=== PATIENT | female | born 1955 | race Caucasian/White ===

== ENCOUNTER 2020-08-22 17:27 | Inpatient (IN) ==
[2020-08-22] MEDS ORDERED: FUROSEMIDE 40 MG/4 ML VIAL IV STA (18:34)
[2020-08-22] MEDS ORDERED: ASPIRIN 325 MG TABLET PO STA (18:34)
[2020-08-22] MEDS ORDERED: ONDANSETRON 4 MG/2 ML VIAL IV STA (18:34)
[2020-08-22] MEDS ORDERED: NITROGLYCERIN 2% OINT 1 INCH/GM PACK TOP STA (18:34)
[2020-08-22 18:45] LABS: Basophils # 0.1 10*3/uL (0.0-0.2); Basophils % 0.6 % (0.0-0.8); Eosinophils # 0.4 10*3/uL (0.0-0.87); Hematocrit 39.5 VOL% (35.7-47.0); Hemoglobin 13.2 GM/DL (12.0-16.0); Immature Granulocytes % 0.3 %; Immature Granulocytes Absolute 0.03 #; Lymphocytes # 3.2 10*3/uL (1.4-4.0); Lymphocytes % 37.4 % (21.3-54.2); Mean Corpuscular HGB Conc 33.4 GM/DL (32-36); Mean Corpuscular Volume 82.5 FL (87-102); Mean Platelet Volume 9.6 FL (9.6-12.0); Monocytes % 6.9 % (1.7-12.7); Neutrophils % 50.8 % (38.7-73.9); Platelet Count 227 T/CUMM (130-400); Red Blood Count 4.79 MC/CUMM (3.8-5.5); Red Cell Distribution Width 13.5 % (9.3-17.3); White Blood Count 8.7 T/CUMM (4-12)
[2020-08-22 18:53] LABS: PT Patient Result 10.3 SECS (9.8-11.9)
[2020-08-22 18:57] LABS: Albumin 3.4 G/DL (3.4-5.0); Bilirubin,Total 0.5 MG/DL (0.2-1.0); Calcium 9.2 MG/DL (8.5-10.1); Osmolality,Calculated 285.5 MOS/KG (273-304); Total Protein 7.4 G/DL (6.4-8.3)
[2020-08-22] MEDS ORDERED: ACETAMINOPHEN 325 MG TABLET PO PRN (22:18)
[2020-08-22] MEDS ORDERED: DEXTROSE 50% 25 GM/50 ML VIAL IV PRN (22:18)
[2020-08-22] MEDS ORDERED: ENOXAPARIN 120 MG/0.8 ML SYRINGE SUBCUT SCH (22:18)
[2020-08-22] MEDS ORDERED: INSULIN LISPRO 100 UNIT/ML SUBCUT SCH (22:18)
[2020-08-22] MEDS ORDERED: FUROSEMIDE 20 MG TABLET PO PRN (22:18)
[2020-08-22] MEDS ORDERED: LANSOPRAZOLE 30 MG PO SCH (22:18)
[2020-08-22] MEDS ORDERED: SODIUM CHLORIDE 0.9% 1,000 ML IV SCH (22:18)
[2020-08-22] MEDS ORDERED: MORPHINE 4 MG/1 ML VIAL IV PRN (22:18)
[2020-08-22] MEDS ORDERED: GLUCAGON 1 MG VIAL IM PRN (22:18)
[2020-08-22] MEDS ORDERED: ONDANSETRON 4 MG/2 ML VIAL IV PRN (22:18)
[2020-08-22] MEDS: DOCUSATE SODIUM 100 MG CAPSULE PO SCH (23:12)
[2020-08-22] MEDS: PANTOPRAZOLE 40 MG TABLET PO SCH (23:12)
[2020-08-22] MEDS: NITROGLYCERIN 2% OINT 1 INCH/GM PACK TOP SCH (23:13)
[2020-08-23 00:47] LABS: Bilirubin,Total 0.4 MG/DL (0.2-1.0); Calcium 8.9 MG/DL (8.5-10.1); Osmolality,Calculated 283.7 MOS/KG (273-304); Risk Ratio 2.59; Total Protein 7.1 G/DL (6.4-8.3); VLDL CHOLESTEROL 15.2 MG/DL
[2020-08-23 00:54] LABS: Basophils % 0.4 % (0.0-0.8); Eosinophils # 0.3 10*3/uL (0.0-0.87); Eosinophils % 3.2 % (0.00-10.9); Hematocrit 37.3 VOL% (35.7-47.0); Hemoglobin 12.4 GM/DL (12.0-16.0); Immature Granulocytes % 0.1 %; Immature Granulocytes Absolute 0.01 #; Lymphocytes # 3.1 10*3/uL (1.4-4.0); Lymphocytes % 40.4 % (21.3-54.2); Mean Corpuscular HGB Conc 33.2 GM/DL (32-36); Mean Corpuscular Volume 83.3 FL (87-102); Mean Platelet Volume 9.6 FL (9.6-12.0); Monocytes % 7.3 % (1.7-12.7); Neutrophils % 48.6 % (38.7-73.9); Platelet Count 196 T/CUMM (130-400); Red Blood Count 4.48 MC/CUMM (3.8-5.5); Red Cell Distribution Width 13.5 % (9.3-17.3); White Blood Count 7.8 T/CUMM (4-12)
[2020-08-23] MEDS: INSULIN GLARGINE 100 UNIT/ML SUBCUT SCH ×3 (01:18→20:33)
[2020-08-23] MEDS: INSULIN REGULAR 100 UNIT/ML SUBCUT SCH ×5 (01:19→20:33)
[2020-08-23] MEDS: NITROGLYCERIN 2% OINT 1 INCH/GM PACK TOP SCH ×3 (06:46→18:59)
[2020-08-23] MEDS: LEVOTHYROXINE 50 MCG TABLET PO SCH (06:46)
[2020-08-23] MEDS ORDERED: metFORMIN 500 MG TABLET PO SCH (07:30)
[2020-08-23] MEDS: INSULIN LISPRO 100 UNIT/ML SUBCUT SCH (08:08)
[2020-08-23] MEDS: DOCUSATE SODIUM 100 MG CAPSULE PO SCH ×2 (08:09→20:32)
[2020-08-23] MEDS: ASPIRIN EC 325 MG TABLET PO SCH (08:09)
[2020-08-23] MEDS: METOPROLOL TARTRATE 25 MG TABLET PO SCH ×2 (08:09→20:36)
[2020-08-23] MEDS ORDERED: MAGNESIUM SULF RIDER 2 GM in PREMIX 1 EACH IV PRN (08:43)
[2020-08-23] MEDS ORDERED: DIAZEPAM 5 MG TABLET PO ONE (08:43)
[2020-08-23] MEDS ORDERED: POTASSIUM CHLORIDE RIDER 10 MEQ in PREMIX 1 EACH IV PRN (08:43)
[2020-08-23] MEDS ORDERED: diphenhydrAMINE CAP 25 MG CAPSULE PO ONE (08:43)
[2020-08-23] MEDS ORDERED: LIRAGLUTIDE SUBCUT SCH (09:00)
[2020-08-23] MEDS: lisinopriL 2.5 MG TABLET PO SCH (09:28)
[2020-08-23] MEDS ORDERED: LIDOCAINE 1% 20 ML VIAL ONE (14:10)
[2020-08-23] MEDS ORDERED: HEPARIN/NACL 0.9% 2 UNITS/ML 1,500 ML IV ONE (14:10)
[2020-08-23] MEDS ORDERED: MIDAZOLAM 2 MG/2 ML VIAL ONE ×2 (14:40→14:51)
[2020-08-23] MEDS ORDERED: fentaNYL 100 MCG/2 ML VIAL ONE (14:41)
[2020-08-23] MEDS ORDERED: DEXTROSE 50% 25 GM/50 ML VIAL IV PRN ×2 (15:24→15:58)
[2020-08-23] MEDS ORDERED: GLUCAGON 1 MG VIAL IM PRN ×2 (15:24→15:58)
[2020-08-23] MEDS ORDERED: SODIUM CHLORIDE 0.9% 1,000 ML IV SCH (15:30)
[2020-08-23] MEDS ORDERED: CEFUROXIME INJ 1,500 MG in SYRINGE 1 EACH IV ONE (15:58)
[2020-08-23 16:43] LABS: Basophils % 0.4 % (0.0-0.8); Eosinophils # 0.2 10*3/uL (0.0-0.87); Eosinophils % 2.9 % (0.00-10.9); Hematocrit 38.6 VOL% (35.7-47.0); Hemoglobin 12.6 GM/DL (12.0-16.0); Immature Granulocytes % 0.2 %; Immature Granulocytes Absolute 0.02 #; Lymphocytes # 3.4 10*3/uL (1.4-4.0); Lymphocytes % 41.3 % (21.3-54.2); Mean Corpuscular HGB Conc 32.6 GM/DL (32-36); Mean Corpuscular Volume 83.7 FL (87-102); Mean Platelet Volume 9.4 FL (9.6-12.0); Monocytes % 7.1 % (1.7-12.7); Neutrophils % 48.1 % (38.7-73.9); Platelet Count 212 T/CUMM (130-400); Red Blood Count 4.61 MC/CUMM (3.8-5.5); Red Cell Distribution Width 13.5 % (9.3-17.3); White Blood Count 8.2 T/CUMM (4-12)
[2020-08-23] MEDS ORDERED: INSULIN LISPRO 100 UNIT/ML SUBCUT SCH (17:00)
[2020-08-23 17:01] LABS: Albumin 3.1 G/DL (3.4-5.0); Bilirubin,Total 1.4 MG/DL (0.2-1.0); Calcium 9.1 MG/DL (8.5-10.1); Osmolality,Calculated 279.5 MOS/KG (273-304); Total Protein 7.2 G/DL (6.4-8.3)
[2020-08-23 18:08] LABS: ABG Base Excess 2.1 MMOL/L (-2.5-2.5); ABG HCO3 26.3 MMOL/L (20-26); ABG Oxygen Saturation 96.2 % (95-100); ABG PCO2 37.8 MM HG (35-48); ABG PH 7.447 (7.35-7.45); ABG PO2 77.1 MM HG (80-95); ABG TCO2 22.9 MMOL/L (23-27)
[2020-08-23] MEDS ORDERED: TEMAZEPAM 7.5 MG CAPSULE PO PRN (20:00)
[2020-08-23] MEDS: PANTOPRAZOLE 40 MG TABLET PO SCH (20:33)
[2020-08-23] MEDS: CHLORHEXIDINE 0.12% ORAL RINSE 60 ML BOTTLE SWISH/SPIT SCH (20:33)
[2020-08-23] MEDS: CHLORHEXIDINE 4% SOLN 118 ML BOTTLE TOP SCH (20:33)
[2020-08-23] MEDS ORDERED: ROSUVASTATIN 20 MG TABLET PO SCH (21:00)
[2020-08-23] MEDS: SODIUM CHLORIDE 0.9% 1,000 ML IV SCH (23:53)
[2020-08-24] MEDS: INSULIN REGULAR 100 UNIT/ML SUBCUT SCH ×3 (00:26→16:16)
[2020-08-24] MEDS: NITROGLYCERIN 2% OINT 1 INCH/GM PACK TOP SCH ×3 (00:26→16:16)
[2020-08-24] MEDS ORDERED: VANCOMYCIN 1,000 MG VIAL ONE (04:34)
[2020-08-24] MEDS ORDERED: VANCOMYCIN 500 MG VIAL ONE ×2 (04:34→13:04)
[2020-08-24] MEDS ORDERED: PAPAVERINE 60 MG/2 ML VIAL ONE (04:34)
[2020-08-24 05:45] LABS: Basophils % 0.3 % (0.0-0.8); Eosinophils # 0.3 10*3/uL (0.0-0.87); Eosinophils % 3.3 % (0.00-10.9); Hematocrit 39.8 VOL% (35.7-47.0); Hemoglobin 13.1 GM/DL (12.0-16.0); Immature Granulocytes % 0.1 %; Immature Granulocytes Absolute 0.01 #; Lymphocytes % 45.9 % (21.3-54.2); Mean Corpuscular HGB Conc 32.9 GM/DL (32-36); Mean Corpuscular Volume 84.1 FL (87-102); Mean Platelet Volume 9.7 FL (9.6-12.0); Monocytes % 6.5 % (1.7-12.7); Neutrophils % 43.9 % (38.7-73.9); Platelet Count 238 T/CUMM (130-400); Red Blood Count 4.73 MC/CUMM (3.8-5.5); Red Cell Distribution Width 13.4 % (9.3-17.3); White Blood Count 8.8 T/CUMM (4-12)
[2020-08-24] MEDS: LEVOTHYROXINE 50 MCG TABLET PO SCH (06:23)
[2020-08-24] MEDS ORDERED: CEFUROXIME INJ 1,500 MG in SYRINGE 1 EACH IV ONE (06:30)
[2020-08-24 07:20] LABS: Calcium 9.3 MG/DL (8.5-10.1)
[2020-08-24 07:21] LABS: Osmolality,Calculated 281.4 MOS/KG (273-304)
[2020-08-24] MEDS ORDERED: ALBUMIN 5% 12.5 GM/250 ML VIAL IV ONE (08:11)
[2020-08-24] MEDS ORDERED: NITROPRUSSIDE 50 MG/2 ML VIAL ONE (08:11)
[2020-08-24] MEDS ORDERED: PHENYLEPHRINE DRIP 40 MG/250 ML PREMIX IV ONE (08:11)
[2020-08-24] MEDS ORDERED: EPINEPHrine 1 MG/10 ML SYRINGE ONE (08:11)
[2020-08-24] MEDS ORDERED: CALCIUM CHLORIDE 1,000 MG/10 ML SYRINGE IV ONE (08:11)
[2020-08-24] MEDS ORDERED: POTASSIUM CHLORIDE RIDER 100 ML IV ONE (08:11)
[2020-08-24] MEDS ORDERED: SODIUM BICARBONATE 50 MEQ/50 ML VIAL IV ONE ×2 (08:11→15:34)
[2020-08-24] MEDS: INSULIN LISPRO 100 UNIT/ML SUBCUT SCH (09:13)
[2020-08-24] MEDS: METOPROLOL TARTRATE 25 MG TABLET PO SCH (09:15)
[2020-08-24] MEDS: lisinopriL 2.5 MG TABLET PO SCH (09:15)
[2020-08-24] MEDS ORDERED: DIAZEPAM 5 MG TABLET PO ONE (09:38)
[2020-08-24] MEDS ORDERED: FAMOTIDINE 20 MG TABLET PO ONE (09:39)
[2020-08-24] MEDS ORDERED: SUFentanil 250 MCG/5 ML AMP ONE (09:40)
[2020-08-24] MEDS ORDERED: MIDAZOLAM 10 MG/2 ML VIAL ONE (09:40)
[2020-08-24] MEDS ORDERED: HEPARIN/NACL 0.9% 2 UNITS/ML 500 ML IV ONE (09:40)
[2020-08-24] MEDS ORDERED: AMINOCAPROIC ACID 5,000 MG/20 ML VIAL ONE (09:41)
[2020-08-24] MEDS ORDERED: MIDAZOLAM 2 MG/2 ML VIAL ONE (10:31)
[2020-08-24] MEDS: DOCUSATE SODIUM 100 MG CAPSULE PO SCH (11:40)
[2020-08-24] MEDS: ASPIRIN EC 325 MG TABLET PO SCH (11:40)
[2020-08-24] MEDS: CHLORHEXIDINE 4% SOLN 118 ML BOTTLE TOP SCH ×2 (11:40→16:15)
[2020-08-24] MEDS: INSULIN GLARGINE 100 UNIT/ML SUBCUT SCH (11:41)
[2020-08-24] MEDS: CHLORHEXIDINE 0.12% ORAL RINSE 60 ML BOTTLE SWISH/SPIT SCH ×2 (11:41→20:29)
[2020-08-24] MEDS ORDERED: CEFUROXIME 1,500 MG VIAL ONE (12:39)
[2020-08-24 12:48] LABS: Hematocrit Heart Surgery 33.1 PERCENT (37-47); Hemoglobin Heart Surgery 10.7 G/DL (12.0-16.0); PCO2 Patient Temp Venous 41.4 MM HG; PH Patient Temp Venous 7.37; PO2 Patient Temp Venous 38.2 MM HG; Potassium Heart/CVR 3.2 MMOL/L (3.5-5.1); VBG Base Excess -1.2 MEQ/L (0-4); VBG HCO3 22.8 MEQ/L (24-28); VBG Oxygen Saturation 67.7 %; VBG PCO2 41.4 MMHG (41-51); VBG PH 7.37; VBG PO2 38.2 MMHG (17-40)
[2020-08-24 12:55] LABS: Bilirubin,Urine Negative (Negative); Blood, Urine Negative (Negative); Glucose,Urine (UA) Negative (Negative); Ketones,Urine Negative (Negative); Mucus,Urine Occasional /LPF (Occasional); Nitrite,Urine Negative (Negative); Protein,Urine Negative; RBC,Urine 2 /HPF (0-4); Squamous Epithelial Cell,Urine Occasional /HPF (0-10); Urine Appearance CLEAR (Clear); Urine Color Yellow (Yellow); Urine Specific Gravity 1.029 (1.001-1.035); WBC,Urine <1 /HPF (0-6)
[2020-08-24 14:24] LABS: Hematocrit Heart Surgery 22.8 PERCENT (37-47); Hemoglobin Heart Surgery 7.3 G/DL (12.0-16.0); PCO2 Patient Temp Venous 38.8 MM HG; PH Patient Temp Venous 7.41; PO2 Patient Temp Venous 53.1 MM HG; Potassium Heart/CVR 3.9 MMOL/L (3.5-5.1); VBG Base Excess 0.1 MEQ/L (0-4); VBG HCO3 24.4 MEQ/L (24-28); VBG Oxygen Saturation 86.3 %; VBG PCO2 38.8 MMHG (41-51); VBG PH 7.41; VBG PO2 53.1 MMHG (17-40)
[2020-08-24 14:27] LABS: Alcohol Patient Result Negative (Negative); Barbiturates Screen,Urine Negative (Negative); Benzodiazepines Screen,Urine Positive (Negative); Cannabinoid Screen,Urine Negative (Negative); Opiate Screen,Urine Negative (Negative); Phencyclidine Screen,Urine Negative (Negative)
[2020-08-24 14:58] LABS: Hematocrit Heart Surgery 25.1 PERCENT (37-47); Hemoglobin Heart Surgery 8.1 G/DL (12.0-16.0); PH Patient Temp Venous 7.471; PO2 Patient Temp Venous 39.4 MM HG; Potassium Heart/CVR 4.3 MMOL/L (3.5-5.1); VBG Base Excess 1.4 MEQ/L (0-4); VBG HCO3 25.4 MEQ/L (24-28); VBG Oxygen Saturation 76.7 %; VBG PH 7.471; VBG PO2 39.4 MMHG (17-40)
[2020-08-24 15:29] LABS: ABG HCO3 23.6 MMOL/L (20-26); ABG Oxygen Saturation 99.4 % (95-100); ABG PCO2 36.4 MM HG (35-48); ABG PH 7.413 (7.35-7.45); ABG TCO2 21.3 MMOL/L (23-27); Glucose Heart Surgery 253 MG/DL (74-106); Hematocrit Heart Surgery 29.3 PERCENT (37-47); Hemoglobin Heart Surgery 9.4 G/DL (12.0-16.0); Ionized Calcium Arterial 1.24 MMOL/L (1.21-1.46); PCO2 Patient Temp Arterial 36.4 MMHG; PH Patient Temp Arterial 7.413; Patient Temperature 37 CELCIUS; Potassium Heart/CVR 3.5 MMOL/L (3.5-5.1); Sodium Heart/CVR 136 MMOL/L (135-145)
[2020-08-24] MEDS ORDERED: MANNITOL 100 GM/500 ML BAG IV ONE (15:33)
[2020-08-24] MEDS ORDERED: LIDOCAINE 2% 5 ML VIAL ONE ×2 (15:34→16:16)
[2020-08-24] MEDS ORDERED: PROTAMINE SULFATE 250 MG/25 ML VIAL IV ONE (15:34)
[2020-08-24] MEDS ORDERED: FUROSEMIDE 20 MG/2 ML VIAL ONE (15:34)
[2020-08-24] MEDS ORDERED: MAGNESIUM SULFATE 5 GM/10 ML VIAL IV ONE (15:34)
[2020-08-24] MEDS ORDERED: HEPARIN 10,000 UNIT/10 ML VIAL ONE (15:34)
[2020-08-24] MEDS ORDERED: DEXTROSE 5% KCL 20 MEQ 20 MEQ/1,000 ML BAG IV ONE (15:34)
[2020-08-24] MEDS ORDERED: ALBUMIN 25% 25 GM/100 ML VIAL IV ONE (15:34)
[2020-08-24] MEDS ORDERED: methylPREDNISolone SOD SUC 1,000 MG/8 ML VIAL ONE (15:34)
[2020-08-24 15:50] LABS: HIV Antigen/Antibody Result Nonreactive (Nonreactive)
[2020-08-24 15:51] LABS: HIV Antigen/Antibody Result Nonreactive (Nonreactive); Hepatitis B Surface Ag Quant < 0.10 Index; Hepatitis B Surface Ag Result Negative (Negative); Hepatitis C Virus Ab Quant 0.09 Index; Hepatitis C Virus Ab Result Negative (Negative)
[2020-08-24] MEDS ORDERED: INSULIN REGULAR 100 UNIT/ML IV PRN (16:12)
[2020-08-24] MEDS ORDERED: ACETAMINOPHEN 650 MG SUPP RECTAL PRN (16:12)
[2020-08-24] MEDS ORDERED: MIDAZOLAM 2 MG/2 ML VIAL IV PRN (16:12)
[2020-08-24] MEDS ORDERED: MORPHINE 4 MG/1 ML VIAL IV PRN (16:12)
[2020-08-24] MEDS ORDERED: DEXTROSE 50% 25 GM/50 ML VIAL IV PRN ×2 (16:12)
[2020-08-24] MEDS ORDERED: ONDANSETRON 4 MG/2 ML VIAL IV PRN (16:12)
[2020-08-24] MEDS ORDERED: CALCIUM CHLORIDE 1,000 MG/10 ML SYRINGE IV PRN (16:12)
[2020-08-24] MEDS ORDERED: LACTATED RINGERS 250 ML IV PRN (16:12)
[2020-08-24] MEDS ORDERED: NITROPRUSSIDE 100 MG in DEXTROSE 5% 250 ML IV PRN (16:12)
[2020-08-24] MEDS ORDERED: SODIUM CHLORIDE 0.45% 1,000 ML IV SCH ×2 (16:12)
[2020-08-24] MEDS ORDERED: CHLORHEXIDINE 4% SOLN 118 ML BOTTLE TOP PRN (16:12)
[2020-08-24] MEDS ORDERED: PHENYLEPHRINE DRIP 40 MG/250 ML PREMIX IV PRN (16:12)
[2020-08-24] MEDS ORDERED: MORPHINE 10 MG/1 ML VIAL IV PRN (16:12)
[2020-08-24] MEDS ORDERED: MAGNESIUM SULF RIDER 2 GM in PREMIX 1 EACH IV PRN (16:12)
[2020-08-24] MEDS ORDERED: MIDAZOLAM 10 MG/2 ML VIAL IV PRN (16:12)
[2020-08-24] MEDS ORDERED: VECURONIUM 10 MG VIAL IV PRN ×2 (16:12)
[2020-08-24] MEDS ORDERED: INSULIN REGULAR 100 UNIT/ML IV ONE (16:12)
[2020-08-24] MEDS ORDERED: MAGNESIUM SULF RIDER 4 GM in PREMIX 1 EACH IV PRN (16:12)
[2020-08-24] MEDS ORDERED: PHENYLEPHRINE 1 MG/10 ML SYRINGE IV ONE (16:16)
[2020-08-24] MEDS ORDERED: CALCIUM CHLORIDE 1,000 MG/10 ML VIAL IV ONE (16:16)
[2020-08-24] MEDS ORDERED: ETOMIDATE 40 MG/20 ML VIAL IV ONE (16:16)
[2020-08-24] MEDS ORDERED: SEVOFLURANE 1 UNIT/15 MINUTE INH ONE (16:16)
[2020-08-24] MEDS: SODIUM CHLORIDE 0.9% 1,000 ML IV SCH (16:16)
[2020-08-24] MEDS ORDERED: LACTATED RINGERS 1,000 ML IV ONE ×3 (16:16→20:29)
[2020-08-24] MEDS ORDERED: SODIUM CHLORIDE 0.9% 1,000 ML IV ONE (16:16)
[2020-08-24] MEDS ORDERED: AMIODARONE 150 MG/3 ML VIAL ONE (16:16)
[2020-08-24 16:19] LABS: ABG Base Excess -0.3 MMOL/L (-2.5-2.5); ABG HCO3 24.2 MMOL/L (20-26); ABG Oxygen Saturation 99.4 % (95-100); ABG PCO2 41.9 MM HG (35-48); ABG TCO2 22.7 MMOL/L (23-27); Glucose Heart Surgery 248 MG/DL (74-106); Hematocrit Heart Surgery 29.9 PERCENT (37-47); Hemoglobin Heart Surgery 9.7 G/DL (12.0-16.0); Potassium Heart/CVR 3.6 MMOL/L (3.5-5.1)
[2020-08-24 16:21] LABS: Basophils % 0.3 % (0.0-0.8); Eosinophils # 0.2 10*3/uL (0.0-0.87); Eosinophils % 1.6 % (0.00-10.9); Hematocrit 29.3 VOL% (35.7-47.0); Hemoglobin 9.7 GM/DL (12.0-16.0); Immature Granulocytes % 0.5 %; Immature Granulocytes Absolute 0.05 #; Lymphocytes # 2.2 10*3/uL (1.4-4.0); Mean Corpuscular HGB Conc 33.1 GM/DL (32-36); Mean Corpuscular Volume 84.9 FL (87-102); Mean Platelet Volume 9.2 FL (9.6-12.0); Monocytes % 4.3 % (1.7-12.7); Neutrophils % 72.3 % (38.7-73.9); Platelet Count 167 T/CUMM (130-400); Red Blood Count 3.45 MC/CUMM (3.8-5.5); Red Cell Distribution Width 13.6 % (9.3-17.3); White Blood Count 10.3 T/CUMM (4-12)
[2020-08-24] MEDS: INSULIN REGULAR DRIP 100 ML IV SCH (16:30)
[2020-08-24] MEDS ORDERED: PROTAMINE SULFATE 50 MG/5 ML VIAL IV ONE (16:42)
[2020-08-24] MEDS: POTASSIUM CHLORIDE RIDER 20 MEQ in PREMIX 1 EACH IV PRN ×3 (16:44→20:27)
[2020-08-24 16:46] LABS: INR 1.1; PT Patient Result 11.9 SECS (9.8-11.9); Partial Thromboplastin Time 32.8 SECS (23.9-33.8)
[2020-08-24 16:49] LABS: Albumin 2.7 G/DL (3.4-5.0); Bilirubin,Total 1.2 MG/DL (0.2-1.0); Calcium 8.5 MG/DL (8.5-10.1); Osmolality,Calculated 284.5 MOS/KG (273-304); Total Protein 5.9 G/DL (6.4-8.3)
[2020-08-24 16:50] LABS: CKMB % 4.5 %
[2020-08-24 16:52] LABS: Troponin I 1.12 NG/ML (0.00-0.045)
[2020-08-24 17:02] LABS: ABG Base Excess -1.6 MMOL/L (-2.5-2.5); ABG HCO3 23.1 MMOL/L (20-26); ABG Oxygen Saturation 98.2 % (95-100); ABG PCO2 44.5 MM HG (35-48); ABG PH 7.343 (7.35-7.45); ABG TCO2 22.2 MMOL/L (23-27); Glucose Heart Surgery 235 MG/DL (74-106); Hematocrit Heart Surgery 30.5 PERCENT (37-47); Hemoglobin Heart Surgery 9.9 G/DL (12.0-16.0); Potassium Heart/CVR 3.3 MMOL/L (3.5-5.1)
[2020-08-24] MEDS: POTASSIUM CHLORIDE RIDER 10 MEQ in PREMIX 1 EACH IV PRN ×3 (17:40→21:00)
[2020-08-24 18:39] LABS: ABG Base Excess -1.4 MMOL/L (-2.5-2.5); ABG HCO3 23.2 MMOL/L (20-26); ABG Oxygen Saturation 98.1 % (95-100); ABG PCO2 44.6 MM HG (35-48); ABG PH 7.345 (7.35-7.45); ABG TCO2 22.3 MMOL/L (23-27); Glucose Heart Surgery 194 MG/DL (74-106); Hematocrit Heart Surgery 30.8 PERCENT (37-47); Potassium Heart/CVR 3.5 MMOL/L (3.5-5.1)
[2020-08-24] MEDS: ALBUMIN 5% 12.5 GM in PREMIX 1 EACH IV PRN ×2 (19:36→20:39)
[2020-08-24 20:11] LABS: ABG Base Excess -2.6 MMOL/L (-2.5-2.5); ABG HCO3 23.6 MMOL/L (20-26); ABG Oxygen Saturation 97.2 % (95-100); ABG PCO2 47.2 MM HG (35-48); ABG PH 7.317 (7.35-7.45); ABG PO2 109.9 MM HG (80-95); ABG TCO2 25.1 MMOL/L (23-27); Glucose Heart Surgery 138 MG/DL (74-106); Hemoglobin Heart Surgery 9.8 G/DL (12.0-16.0); Potassium Heart/CVR 3.7 MMOL/L (3.5-5.1)
[2020-08-24 21:20] LABS: ABG Base Excess -1.9 MMOL/L (-2.5-2.5); ABG HCO3 22.8 MMOL/L (20-26); ABG Oxygen Saturation 95.5 % (95-100); ABG PCO2 39.2 MM HG (35-48); ABG PH 7.378 (7.35-7.45); ABG PO2 83.3 MM HG (80-95); ABG TCO2 21.4 MMOL/L (23-27); Glucose Heart Surgery 129 MG/DL (74-106); Hematocrit Heart Surgery 26.9 PERCENT (37-47); Hemoglobin Heart Surgery 8.7 G/DL (12.0-16.0); Potassium Heart/CVR 4.2 MMOL/L (3.5-5.1)
[2020-08-24] MEDS ORDERED: SODIUM CHLORIDE 0.9% 1,000 ML IV PRN (21:26)
[2020-08-24] MEDS ORDERED: CEFUROXIME INJ 1,500 MG in SODIUM CHLORIDE 0.9% 100 ML IV SCH (23:30)
[2020-08-25 00:29] LABS: ABG Base Excess -3.1 MMOL/L (-2.5-2.5); ABG HCO3 22.3 MMOL/L (20-26); ABG PCO2 41.6 MM HG (35-48); ABG PH 7.348 (7.35-7.45); ABG TCO2 23.6 MMOL/L (23-27); Glucose Heart Surgery 110 MG/DL (74-106); Hemoglobin Heart Surgery 12.4 G/DL (12.0-16.0); Potassium Heart/CVR 3.7 MMOL/L (3.5-5.1)
[2020-08-25] MEDS: POTASSIUM CHLORIDE RIDER 20 MEQ in PREMIX 1 EACH IV PRN (00:37)
[2020-08-25] MEDS: POTASSIUM CHLORIDE RIDER 10 MEQ in PREMIX 1 EACH IV PRN (01:11)
[2020-08-25 01:25] LABS: CKMB % 4.9 %
[2020-08-25 01:29] LABS: Troponin I 1.31 NG/ML (0.00-0.045)
[2020-08-25 02:15] LABS: ABG Base Excess -2.5 MMOL/L (-2.5-2.5); ABG Oxygen Saturation 96.1 % (95-100); ABG PCO2 37.4 MM HG (35-48); ABG PH 7.388 (7.35-7.45); ABG PO2 83.5 MM HG (80-95); ABG TCO2 23.2 MMOL/L (23-27); Glucose Heart Surgery 103 MG/DL (74-106); Hemoglobin Heart Surgery 12.5 G/DL (12.0-16.0); Potassium Heart/CVR 4.2 MMOL/L (3.5-5.1)
[2020-08-25 03:33] LABS: ABG Base Excess -3.2 MMOL/L (-2.5-2.5); ABG HCO3 22.4 MMOL/L (20-26); ABG Oxygen Saturation 94.1 % (95-100); ABG PCO2 42.1 MM HG (35-48); ABG PH 7.343 (7.35-7.45); ABG PO2 73.9 MM HG (80-95); ABG TCO2 23.6 MMOL/L (23-27); Glucose Heart Surgery 105 MG/DL (74-106); Hemoglobin Heart Surgery 12.9 G/DL (12.0-16.0); Potassium Heart/CVR 4.1 MMOL/L (3.5-5.1)
[2020-08-25] MEDS: INSULIN REGULAR DRIP 100 ML IV SCH (03:35)
[2020-08-25 03:49] LABS: Basophils % 0.2 % (0.0-0.8); Hematocrit 36.6 VOL% (35.7-47.0); Hemoglobin 12.5 GM/DL (12.0-16.0); Immature Granulocytes % 0.4 %; Immature Granulocytes Absolute 0.04 #; Lymphocytes # 0.8 10*3/uL (1.4-4.0); Lymphocytes % 7.3 % (21.3-54.2); Mean Corpuscular HGB Conc 34.2 GM/DL (32-36); Mean Corpuscular Volume 84.1 FL (87-102); Mean Platelet Volume 9.4 FL (9.6-12.0); Monocytes % 3.1 % (1.7-12.7); Platelet Count 148 T/CUMM (130-400); Red Blood Count 4.35 MC/CUMM (3.8-5.5); Red Cell Distribution Width 13.4 % (9.3-17.3); White Blood Count 11.3 T/CUMM (4-12)
[2020-08-25 04:10] LABS: Albumin 3.3 G/DL (3.4-5.0); Bilirubin,Direct 0.42 MG/DL (0.0-0.20); Bilirubin,Total 1.5 MG/DL (0.2-1.0); Calcium 8.4 MG/DL (8.5-10.1); Osmolality,Calculated 279.3 MOS/KG (273-304); Total Protein 6.6 G/DL (6.4-8.3)
[2020-08-25] MEDS ORDERED: KETOROLAC 30 MG/1 ML VIAL IV ONE (07:00)
[2020-08-25] MEDS ORDERED: FUROSEMIDE 40 MG/4 ML VIAL IV ONE (07:28)
[2020-08-25] MEDS ORDERED: INSULIN REGULAR 100 UNIT/ML SUBCUT SCH (08:00)
[2020-08-25] MEDS: CHLORHEXIDINE 0.12% ORAL RINSE 60 ML BOTTLE SWISH/SPIT SCH ×3 (08:03→20:56)
[2020-08-25 08:18] LABS: CKMB % 5.9 %
[2020-08-25 08:27] LABS: Troponin I 1.76 NG/ML (0.00-0.045)
[2020-08-25] MEDS ORDERED: SODIUM CHLOR 0.45% KCL 20 MEQ 20 MEQ/1,000 ML BAG IV SCH (09:39)
[2020-08-25] MEDS ORDERED: ONDANSETRON 4 MG/2 ML VIAL IV PRN (09:39)
[2020-08-25] MEDS ORDERED: DEXTROSE 50% 25 GM/50 ML VIAL IV PRN ×2 (09:39)
[2020-08-25] MEDS ORDERED: POTASSIUM CHLORIDE 20 MEQ TABLET PO PRN (09:39)
[2020-08-25] MEDS ORDERED: ALUMINUM/MAGNES/SIMETH MAX STR 30 ML UDCUP PO PRN (09:39)
[2020-08-25] MEDS ORDERED: GLUCAGON 1 MG VIAL IM PRN ×2 (09:39)
[2020-08-25] MEDS ORDERED: MAGNESIUM SULF RIDER 2 GM in PREMIX 1 EACH IV PRN (09:39)
[2020-08-25] MEDS ORDERED: MAGNESIUM HYDROXIDE SUSP 30 ML UDCUP PO PRN (09:39)
[2020-08-25] MEDS ORDERED: ACETAMINOPHEN 325 MG TABLET PO PRN (09:39)
[2020-08-25] MEDS ORDERED: MAGNESIUM SULF RIDER 4 GM in PREMIX 1 EACH IV PRN (09:39)
[2020-08-25] MEDS: PANTOPRAZOLE 40 MG TABLET PO SCH (10:11)
[2020-08-25] MEDS: METOPROLOL TARTRATE 25 MG TABLET PO SCH ×2 (10:11→20:56)
[2020-08-25] MEDS: DOCUSATE SODIUM 100 MG CAPSULE PO SCH (10:11)
[2020-08-25] MEDS: FERROUS SULFATE 325 MG TABLET PO SCH (10:12)
[2020-08-25] MEDS: ASPIRIN EC 325 MG TABLET PO SCH (10:14)
[2020-08-25] MEDS: lisinopriL 2.5 MG TABLET PO SCH (10:14)
[2020-08-25] MEDS: KETOROLAC 30 MG/1 ML VIAL IV SCH ×3 (11:35→23:31)
[2020-08-25] MEDS: INSULIN REGULAR 100 UNIT/ML SUBCUT SCH ×3 (12:30→20:55)
[2020-08-25] MEDS: ROSUVASTATIN 20 MG TABLET PO SCH (20:56)
[2020-08-26] MEDS: KETOROLAC 30 MG/1 ML VIAL IV SCH ×3 (05:15→17:25)
[2020-08-26 05:43] LABS: Basophils # 0.1 10*3/uL (0.0-0.2); Basophils % 0.4 % (0.0-0.8); Eosinophils % 0.2 % (0.00-10.9); Hematocrit 33.8 VOL% (35.7-47.0); Immature Granulocytes % 0.5 %; Immature Granulocytes Absolute 0.08 #; Lymphocytes # 3.2 10*3/uL (1.4-4.0); Mean Corpuscular HGB Conc 32.5 GM/DL (32-36); Mean Corpuscular Volume 87.1 FL (87-102); Mean Platelet Volume 10.2 FL (9.6-12.0); Monocytes % 6.8 % (1.7-12.7); Neutrophils % 72.1 % (38.7-73.9); Platelet Count 186 T/CUMM (130-400); Red Blood Count 3.88 MC/CUMM (3.8-5.5); Red Cell Distribution Width 14.2 % (9.3-17.3); White Blood Count 16.2 T/CUMM (4-12)
[2020-08-26] MEDS ORDERED: FUROSEMIDE 40 MG/4 ML VIAL IV ONE (06:00)
[2020-08-26 06:16] LABS: Albumin 3.1 G/DL (3.4-5.0); Bilirubin,Direct 0.23 MG/DL (0.0-0.20); Bilirubin,Indirect 0.5 MG/DL (0.0-1.0); Bilirubin,Total 0.7 MG/DL (0.2-1.0); Calcium 8.4 MG/DL (8.5-10.1); Osmolality,Calculated 286.8 MOS/KG (273-304); Total Protein 6.6 G/DL (6.4-8.3)
[2020-08-26 06:18] LABS: Troponin I 1.44 NG/ML (0.00-0.045)
[2020-08-26] MEDS: LIDOCAINE 5% PATCH TRANSDERM SCH (09:20)
[2020-08-26] MEDS: ASPIRIN EC 325 MG TABLET PO SCH (09:24)
[2020-08-26] MEDS: FERROUS SULFATE 325 MG TABLET PO SCH (09:24)
[2020-08-26] MEDS: lisinopriL 2.5 MG TABLET PO SCH (09:24)
[2020-08-26] MEDS: DOCUSATE SODIUM 100 MG CAPSULE PO SCH (09:24)
[2020-08-26] MEDS: METOPROLOL TARTRATE 25 MG TABLET PO SCH ×3 (09:24→21:20)
[2020-08-26] MEDS: INSULIN REGULAR 100 UNIT/ML SUBCUT SCH ×4 (09:24→21:18)
[2020-08-26] MEDS: PANTOPRAZOLE 40 MG TABLET PO SCH (09:24)
[2020-08-26] MEDS: ASCORBIC ACID 500 MG TABLET PO SCH ×2 (09:24→21:19)
[2020-08-26] MEDS: CHLORHEXIDINE 0.12% ORAL RINSE 60 ML BOTTLE SWISH/SPIT SCH ×2 (09:25→21:18)
[2020-08-26] MEDS: FUROSEMIDE 40 MG/4 ML VIAL IV SCH (09:30)
[2020-08-26] MEDS: oxyCODONE/ACETAMINOPHEN 5-325 MG TABLET PO PRN ×2 (12:29→16:47)
[2020-08-26] MEDS: metFORMIN 500 MG TABLET PO SCH (17:25)
[2020-08-26] MEDS: ROSUVASTATIN 20 MG TABLET PO SCH (21:19)
[2020-08-27] MEDS: KETOROLAC 30 MG/1 ML VIAL IV SCH ×5 (00:12→23:37)
[2020-08-27 05:45] LABS: Basophils % 0.4 % (0.0-0.8); Eosinophils # 0.3 10*3/uL (0.0-0.87); Eosinophils % 2.8 % (0.00-10.9); Hematocrit 31.6 VOL% (35.7-47.0); Hemoglobin 10.3 GM/DL (12.0-16.0); Immature Granulocytes % 0.6 %; Immature Granulocytes Absolute 0.07 #; Lymphocytes # 3.6 10*3/uL (1.4-4.0); Lymphocytes % 31.9 % (21.3-54.2); Mean Corpuscular HGB Conc 32.6 GM/DL (32-36); Mean Platelet Volume 9.8 FL (9.6-12.0); Monocytes % 6.9 % (1.7-12.7); Neutrophils % 57.4 % (38.7-73.9); Platelet Count 171 T/CUMM (130-400); Red Blood Count 3.59 MC/CUMM (3.8-5.5); Red Cell Distribution Width 14.3 % (9.3-17.3); White Blood Count 11.2 T/CUMM (4-12)
[2020-08-27 06:24] LABS: Alanine Aminotransferase 42 U/L (13-56); Albumin 2.9 G/DL (3.4-5.0); Alkaline Phosphatase 115 U/L (45-117); Aspartate Amino Transferase 30 U/L (0-37); Bilirubin,Indirect 0.6 MG/DL (0.0-1.0); Blood Urea Nitrogen 31 MG/DL (7-18); Calcium 8.4 MG/DL (8.5-10.1); Estimated Glom Filtration Rate 88 ML/MIN; Glucose 222 MG/DL (74-106); Osmolality,Calculated 288.7 MOS/KG (273-304); Total Protein 6.4 G/DL (6.4-8.3)
[2020-08-27 06:26] LABS: Troponin I 0.843 NG/ML (0.00-0.045)
[2020-08-27] MEDS ORDERED: VECURONIUM 10 MG VIAL IV ONE (06:29)
[2020-08-27] MEDS ORDERED: BISACODYL 5 MG TABLET PO PRN (09:11)
[2020-08-27] MEDS ORDERED: POLYETHYLENE GLYCOL POWDER 17 GM PACK PO PRN (09:11)
[2020-08-27] MEDS: INSULIN REGULAR 100 UNIT/ML SUBCUT SCH ×4 (10:06→21:08)
[2020-08-27] MEDS: metFORMIN 500 MG TABLET PO SCH ×2 (10:09→16:30)
[2020-08-27] MEDS: DOCUSATE SODIUM 100 MG CAPSULE PO SCH (10:09)
[2020-08-27] MEDS: ASPIRIN EC 325 MG TABLET PO SCH (10:09)
[2020-08-27] MEDS: PANTOPRAZOLE 40 MG TABLET PO SCH (10:10)
[2020-08-27] MEDS: METOPROLOL TARTRATE 25 MG TABLET PO SCH ×2 (10:10→21:09)
[2020-08-27] MEDS: FERROUS SULFATE 325 MG TABLET PO SCH (10:10)
[2020-08-27] MEDS: lisinopriL 2.5 MG TABLET PO SCH (10:10)
[2020-08-27] MEDS: ASCORBIC ACID 500 MG TABLET PO SCH ×2 (10:11→21:09)
[2020-08-27] MEDS ORDERED: POTASSIUM CHLORIDE 20 MEQ TABLET PO ONE (10:11)
[2020-08-27] MEDS: LIDOCAINE 5% PATCH TRANSDERM SCH (10:14)
[2020-08-27] MEDS: FUROSEMIDE 40 MG/4 ML VIAL IV SCH (10:15)
[2020-08-27] MEDS: CHLORHEXIDINE 0.12% ORAL RINSE 60 ML BOTTLE SWISH/SPIT SCH ×2 (12:19→21:09)
[2020-08-27] MEDS: oxyCODONE/ACETAMINOPHEN 5-325 MG TABLET PO PRN ×2 (13:43→21:08)
[2020-08-27] MEDS: ROSUVASTATIN 20 MG TABLET PO SCH (21:09)
[2020-08-28] MEDS ORDERED: KETOROLAC 30 MG/1 ML VIAL IV SCH (06:00)
[2020-08-28] MEDS: KETOROLAC 30 MG/1 ML VIAL IV SCH (06:04)
[2020-08-28 06:20] LABS: Calcium 8.6 MG/DL (8.5-10.1); Osmolality,Calculated 284.7 MOS/KG (273-304)
[2020-08-28] MEDS ORDERED: INSULIN GLARGINE 100 UNIT/ML SUBCUT SCH (09:00)
[2020-08-28] MEDS: ASPIRIN EC 325 MG TABLET PO SCH (09:04)
[2020-08-28] MEDS: INSULIN REGULAR 100 UNIT/ML SUBCUT SCH ×4 (09:04→22:14)
[2020-08-28] MEDS: FUROSEMIDE 40 MG/4 ML VIAL IV SCH (09:04)
[2020-08-28] MEDS: oxyCODONE/ACETAMINOPHEN 5-325 MG TABLET PO PRN ×3 (09:05→22:11)
[2020-08-28] MEDS: lisinopriL 2.5 MG TABLET PO SCH (09:05)
[2020-08-28] MEDS: DOCUSATE SODIUM 100 MG CAPSULE PO SCH (09:05)
[2020-08-28] MEDS: ASCORBIC ACID 500 MG TABLET PO SCH ×2 (09:05→22:10)
[2020-08-28] MEDS: CHLORHEXIDINE 0.12% ORAL RINSE 60 ML BOTTLE SWISH/SPIT SCH ×2 (09:06→22:20)
[2020-08-28] MEDS: metFORMIN 500 MG TABLET PO SCH ×2 (09:06→17:09)
[2020-08-28] MEDS: METOPROLOL TARTRATE 25 MG TABLET PO SCH ×2 (09:06→22:11)
[2020-08-28] MEDS: FERROUS SULFATE 325 MG TABLET PO SCH (09:06)
[2020-08-28] MEDS: LIDOCAINE 5% PATCH TRANSDERM SCH (09:06)
[2020-08-28] MEDS: PANTOPRAZOLE 40 MG TABLET PO SCH (09:06)
[2020-08-28] MEDS ORDERED: LACTULOSE 20 GM/30 ML UDCUP PO PRN (15:56)
[2020-08-28] MEDS: ROSUVASTATIN 20 MG TABLET PO SCH (22:10)
[2020-08-29 06:59] LABS: Basophils % 0.4 % (0.0-0.8); Eosinophils # 0.4 10*3/uL (0.0-0.87); Eosinophils % 5.4 % (0.00-10.9); Hematocrit 40.4 VOL% (35.7-47.0); Immature Granulocytes % 0.4 %; Immature Granulocytes Absolute 0.03 #; Lymphocytes # 1.7 10*3/uL (1.4-4.0); Lymphocytes % 22.6 % (21.3-54.2); Mean Corpuscular HGB Conc 32.9 GM/DL (32-36); Mean Corpuscular Volume 87.1 FL (87-102); Mean Platelet Volume 9.6 FL (9.6-12.0); Monocytes % 9.5 % (1.7-12.7); Neutrophils % 61.7 % (38.7-73.9); Platelet Count 191 T/CUMM (130-400)
[2020-08-29 07:05] LABS: White Blood Count 7.4 T/CUMM (4-12)
[2020-08-29 07:06] LABS: Hemoglobin 13.3 GM/DL (12.0-16.0); Red Blood Count 4.64 MC/CUMM (3.8-5.5)
[2020-08-29 07:22] LABS: Alanine Aminotransferase 40 U/L (13-56); Albumin 2.7 G/DL (3.4-5.0); Alkaline Phosphatase 162 U/L (45-117); Aspartate Amino Transferase 22 U/L (0-37); Bilirubin,Indirect 0.4 MG/DL (0.0-1.0); Blood Urea Nitrogen 21 MG/DL (7-18); Calcium 8.9 MG/DL (8.5-10.1); Estimated Glom Filtration Rate 120 ML/MIN; Glucose 226 MG/DL (74-106); Osmolality,Calculated 279.1 MOS/KG (273-304); Total Protein 6.7 G/DL (6.4-8.3)
[2020-08-29 07:24] LABS: Troponin I 0.305 NG/ML (0.00-0.045)
[2020-08-29] MEDS: INSULIN REGULAR 100 UNIT/ML SUBCUT SCH ×4 (08:16→20:54)
[2020-08-29] MEDS: METOPROLOL TARTRATE 25 MG TABLET PO SCH ×2 (09:16→20:49)
[2020-08-29] MEDS: DOCUSATE SODIUM 100 MG CAPSULE PO SCH (09:16)
[2020-08-29] MEDS: lisinopriL 2.5 MG TABLET PO SCH (09:17)
[2020-08-29] MEDS: PANTOPRAZOLE 40 MG TABLET PO SCH (09:17)
[2020-08-29] MEDS: metFORMIN 500 MG TABLET PO SCH ×2 (09:17→16:29)
[2020-08-29] MEDS: ASCORBIC ACID 500 MG TABLET PO SCH ×2 (09:17→20:54)
[2020-08-29] MEDS: POLYETHYLENE GLYCOL POWDER 17 GM PACK PO SCH (09:19)
[2020-08-29] MEDS: ASPIRIN EC 325 MG TABLET PO SCH (09:20)
[2020-08-29] MEDS: INSULIN GLARGINE 100 UNIT/ML SUBCUT SCH (09:20)
[2020-08-29] MEDS: FUROSEMIDE 40 MG/4 ML VIAL IV SCH ×2 (09:22→11:04)
[2020-08-29] MEDS: LIDOCAINE 5% PATCH TRANSDERM SCH (09:23)
[2020-08-29] MEDS: oxyCODONE/ACETAMINOPHEN 5-325 MG TABLET PO PRN ×3 (09:28→18:13)
[2020-08-29] MEDS: CHLORHEXIDINE 0.12% ORAL RINSE 60 ML BOTTLE SWISH/SPIT SCH ×2 (09:29→20:54)
[2020-08-29] MEDS: SPIRONOLACTONE 25 MG TABLET PO SCH (10:01)
[2020-08-29] MEDS ORDERED: methylPREDNISolone SOD SUC 125 MG/2 ML VIAL IV ONE (10:31)
[2020-08-29] MEDS: GABAPENTIN 100 MG CAPSULE PO SCH ×3 (11:03→20:49)
[2020-08-29] MEDS: KETOROLAC 30 MG/1 ML VIAL IV PRN ×2 (12:28→18:13)
[2020-08-29] MEDS ORDERED: TEMAZEPAM 15 MG CAPSULE PO PRN (20:21)
[2020-08-29] MEDS: ROSUVASTATIN 20 MG TABLET PO SCH (20:49)
[2020-08-29] MEDS ORDERED: INSULIN REGULAR 100 UNIT/ML SUBCUT ONE (23:19)
[2020-08-30] MEDS ORDERED: INSULIN REGULAR 100 UNIT/ML SUBCUT ONE (02:39)
[2020-08-30 05:00] LABS: Basophils % 0.2 % (0.0-0.8); Hematocrit 31.4 VOL% (35.7-47.0); Immature Granulocytes % 0.4 %; Immature Granulocytes Absolute 0.05 #; Lymphocytes # 1.2 10*3/uL (1.4-4.0); Lymphocytes % 11.1 % (21.3-54.2); Mean Corpuscular HGB Conc 33.4 GM/DL (32-36); Mean Corpuscular Volume 85.1 FL (87-102); Mean Platelet Volume 9.5 FL (9.6-12.0); Monocytes % 7.6 % (1.7-12.7); Neutrophils % 80.7 % (38.7-73.9); Platelet Count 202 T/CUMM (130-400); Red Cell Distribution Width 13.2 % (9.3-17.3)
[2020-08-30 05:19] LABS: Hemoglobin 10.5 GM/DL (12.0-16.0); Red Blood Count 3.69 MC/CUMM (3.8-5.5); White Blood Count 11.2 T/CUMM (4-12)
[2020-08-30 05:27] LABS: Alanine Aminotransferase 34 U/L (13-56); Albumin 2.4 G/DL (3.4-5.0); Alkaline Phosphatase 152 U/L (45-117); Aspartate Amino Transferase 12 U/L (0-37); Bilirubin,Indirect 0.7 MG/DL (0.0-1.0); Blood Urea Nitrogen 26 MG/DL (7-18); Calcium 9.3 MG/DL (8.5-10.1); Estimated Glom Filtration Rate 78 ML/MIN; Glucose 300 MG/DL (74-106); Total Protein 6.6 G/DL (6.4-8.3)
[2020-08-30 05:34] LABS: Troponin I 0.113 NG/ML (0.00-0.045)
[2020-08-30] MEDS: oxyCODONE/ACETAMINOPHEN 5-325 MG TABLET PO PRN ×2 (05:59→12:10)
[2020-08-30] MEDS ORDERED: LORATADINE 10 MG TABLET PO PRN (08:22)
[2020-08-30] MEDS ORDERED: DEXTROMETHORPHAN ER 6 MG/ML 90 ML/BOTTLE PO PRN (08:23)
[2020-08-30] MEDS ORDERED: PSEUDOEPHEDRINE 30 MG TABLET PO PRN (08:23)
[2020-08-30] MEDS: metFORMIN 500 MG TABLET PO SCH ×2 (08:41→16:43)
[2020-08-30] MEDS: ASPIRIN EC 81 MG TABLET PO SCH (08:41)
[2020-08-30] MEDS: PANTOPRAZOLE 40 MG TABLET PO SCH (08:41)
[2020-08-30] MEDS: lisinopriL 2.5 MG TABLET PO SCH (08:42)
[2020-08-30] MEDS: ASCORBIC ACID 500 MG TABLET PO SCH ×2 (08:43→21:03)
[2020-08-30] MEDS: SPIRONOLACTONE 25 MG TABLET PO SCH (08:43)
[2020-08-30] MEDS: DOCUSATE SODIUM 100 MG CAPSULE PO SCH (08:43)
[2020-08-30] MEDS: GABAPENTIN 100 MG CAPSULE PO SCH ×3 (08:43→21:03)
[2020-08-30] MEDS: METOPROLOL TARTRATE 25 MG TABLET PO SCH ×2 (08:43→21:03)
[2020-08-30] MEDS: FUROSEMIDE 40 MG/4 ML VIAL IV SCH (08:44)
[2020-08-30] MEDS: INSULIN REGULAR 100 UNIT/ML SUBCUT SCH ×5 (08:44→21:02)
[2020-08-30] MEDS: INSULIN GLARGINE 100 UNIT/ML SUBCUT SCH (08:45)
[2020-08-30] MEDS: LIDOCAINE 5% PATCH TRANSDERM SCH (08:46)
[2020-08-30] MEDS: POLYETHYLENE GLYCOL POWDER 17 GM PACK PO SCH (08:46)
[2020-08-30] MEDS: KETOROLAC 30 MG/1 ML VIAL IV SCH ×3 (08:54→21:02)
[2020-08-30] MEDS: CHLORHEXIDINE 0.12% ORAL RINSE 60 ML BOTTLE SWISH/SPIT SCH ×2 (08:56→21:03)
[2020-08-30] MEDS: ZALEPLON 5 MG CAPSULE PO PRN (21:02)
[2020-08-30] MEDS: ROSUVASTATIN 20 MG TABLET PO SCH (21:03)
[2020-08-31] MEDS: KETOROLAC 30 MG/1 ML VIAL IV SCH ×4 (02:37→20:58)
[2020-08-31] MEDS: POLYETHYLENE GLYCOL POWDER 17 GM PACK PO SCH (10:06)
[2020-08-31] MEDS: CHLORHEXIDINE 0.12% ORAL RINSE 60 ML BOTTLE SWISH/SPIT SCH ×2 (10:07→21:11)
[2020-08-31] MEDS: INSULIN GLARGINE 100 UNIT/ML SUBCUT SCH (10:08)
[2020-08-31] MEDS: ASCORBIC ACID 500 MG TABLET PO SCH ×2 (10:09→21:05)
[2020-08-31] MEDS: GABAPENTIN 100 MG CAPSULE PO SCH ×3 (10:09→21:06)
[2020-08-31] MEDS: DOCUSATE SODIUM 100 MG CAPSULE PO SCH (10:09)
[2020-08-31] MEDS: PANTOPRAZOLE 40 MG TABLET PO SCH (10:09)
[2020-08-31] MEDS: METOPROLOL TARTRATE 25 MG TABLET PO SCH ×2 (10:09→21:06)
[2020-08-31] MEDS: SPIRONOLACTONE 25 MG TABLET PO SCH (10:09)
[2020-08-31] MEDS: ASPIRIN EC 81 MG TABLET PO SCH (10:09)
[2020-08-31] MEDS: lisinopriL 2.5 MG TABLET PO SCH (10:10)
[2020-08-31] MEDS: metFORMIN 500 MG TABLET PO SCH ×2 (10:10→18:32)
[2020-08-31] MEDS: FUROSEMIDE 40 MG TABLET PO SCH (10:10)
[2020-08-31] MEDS: LIDOCAINE 5% PATCH TRANSDERM SCH (10:14)
[2020-08-31] MEDS: INSULIN REGULAR 100 UNIT/ML SUBCUT SCH ×4 (10:21→22:08)
[2020-08-31] MEDS: oxyCODONE/ACETAMINOPHEN 5-325 MG TABLET PO PRN (14:18)
[2020-08-31] MEDS: ROSUVASTATIN 20 MG TABLET PO SCH (21:05)
[2020-09-01] MEDS: oxyCODONE/ACETAMINOPHEN 5-325 MG TABLET PO PRN ×4 (01:15→21:11)
[2020-09-01] MEDS: ZALEPLON 5 MG CAPSULE PO PRN (01:17)
[2020-09-01] MEDS: KETOROLAC 30 MG/1 ML VIAL IV SCH ×3 (01:33→16:06)
[2020-09-01 06:02] LABS: Basophils % 0.4 % (0.0-0.8); Eosinophils # 0.8 10*3/uL (0.0-0.87); Eosinophils % 8.1 % (0.00-10.9); Hematocrit 31.8 VOL% (35.7-47.0); Hemoglobin 10.6 GM/DL (12.0-16.0); Immature Granulocytes % 0.6 %; Immature Granulocytes Absolute 0.06 #; Lymphocytes # 3.5 10*3/uL (1.4-4.0); Lymphocytes % 33.5 % (21.3-54.2); Mean Corpuscular HGB Conc 33.3 GM/DL (32-36); Mean Corpuscular Volume 85.9 FL (87-102); Mean Platelet Volume 8.9 FL (9.6-12.0); Monocytes % 7.8 % (1.7-12.7); Neutrophils % 49.6 % (38.7-73.9); Platelet Count 304 T/CUMM (130-400); Red Cell Distribution Width 13.5 % (9.3-17.3); White Blood Count 10.4 T/CUMM (4-12)
[2020-09-01 06:27] LABS: Calcium 9.1 MG/DL (8.5-10.1); Osmolality,Calculated 282.5 MOS/KG (273-304)
[2020-09-01] MEDS: POLYETHYLENE GLYCOL POWDER 17 GM PACK PO SCH (08:00)
[2020-09-01] MEDS: PANTOPRAZOLE 40 MG TABLET PO SCH (08:05)
[2020-09-01] MEDS: metFORMIN 500 MG TABLET PO SCH ×2 (08:05→16:48)
[2020-09-01] MEDS: DOCUSATE SODIUM 100 MG CAPSULE PO SCH (08:05)
[2020-09-01] MEDS: ASPIRIN EC 81 MG TABLET PO SCH (08:05)
[2020-09-01] MEDS: FUROSEMIDE 40 MG TABLET PO SCH (08:05)
[2020-09-01] MEDS: METOPROLOL TARTRATE 25 MG TABLET PO SCH ×2 (08:05→21:12)
[2020-09-01] MEDS: ASCORBIC ACID 500 MG TABLET PO SCH ×2 (08:05→21:12)
[2020-09-01] MEDS: lisinopriL 2.5 MG TABLET PO SCH (08:05)
[2020-09-01] MEDS: SPIRONOLACTONE 25 MG TABLET PO SCH (08:05)
[2020-09-01] MEDS: GABAPENTIN 100 MG CAPSULE PO SCH ×3 (08:05→21:12)
[2020-09-01] MEDS: CHLORHEXIDINE 0.12% ORAL RINSE 60 ML BOTTLE SWISH/SPIT SCH ×2 (08:08→21:13)
[2020-09-01] MEDS: INSULIN GLARGINE 100 UNIT/ML SUBCUT SCH (10:05)
[2020-09-01] MEDS: LIDOCAINE 5% PATCH TRANSDERM SCH (10:06)
[2020-09-01] MEDS: INSULIN REGULAR 100 UNIT/ML SUBCUT SCH ×4 (10:07→21:12)
[2020-09-01] MEDS ORDERED: FUROSEMIDE 40 MG/4 ML VIAL IV ONE (16:14)
[2020-09-01] MEDS ORDERED: FUROSEMIDE 40 MG TABLET PO ONE (16:35)
[2020-09-01] MEDS: ROSUVASTATIN 20 MG TABLET PO SCH (21:12)
[2020-09-02 04:14] LABS: Basophils % 0.5 % (0.0-0.8); Eosinophils # 0.8 10*3/uL (0.0-0.87); Eosinophils % 8.6 % (0.00-10.9); Hematocrit 33.5 VOL% (35.7-47.0); Hemoglobin 10.9 GM/DL (12.0-16.0); Immature Granulocytes % 0.6 %; Immature Granulocytes Absolute 0.05 #; Lymphocytes # 2.7 10*3/uL (1.4-4.0); Lymphocytes % 31.2 % (21.3-54.2); Mean Corpuscular HGB Conc 32.5 GM/DL (32-36); Mean Corpuscular Volume 85.7 FL (87-102); Mean Platelet Volume 9.1 FL (9.6-12.0); Monocytes % 8.1 % (1.7-12.7); Platelet Count 292 T/CUMM (130-400); Red Blood Count 3.91 MC/CUMM (3.8-5.5); Red Cell Distribution Width 13.8 % (9.3-17.3); White Blood Count 8.7 T/CUMM (4-12)
[2020-09-02 04:34] LABS: Calcium 9.2 MG/DL (8.5-10.1)
[2020-09-02 04:37] LABS: Eosinophils 9 % (0-10); Lymphocytes 22 % (20-55); Platelet Estimate Normal; Segmented Neutrophils 63 % (50-85)
[2020-09-02 04:38] LABS: Hypochromasia Slight; Total Cells Counted 100
[2020-09-02] MEDS: POLYETHYLENE GLYCOL POWDER 17 GM PACK PO SCH (08:00)
[2020-09-02] MEDS: oxyCODONE/ACETAMINOPHEN 5-325 MG TABLET PO PRN ×4 (08:00→19:23)
[2020-09-02] MEDS: INSULIN GLARGINE 100 UNIT/ML SUBCUT SCH (08:02)
[2020-09-02] MEDS: ASPIRIN EC 81 MG TABLET PO SCH (08:04)
[2020-09-02] MEDS: ASCORBIC ACID 500 MG TABLET PO SCH ×2 (08:04→20:26)
[2020-09-02] MEDS: METOPROLOL TARTRATE 25 MG TABLET PO SCH ×2 (08:04→20:26)
[2020-09-02] MEDS: DOCUSATE SODIUM 100 MG CAPSULE PO SCH (08:04)
[2020-09-02] MEDS: metFORMIN 500 MG TABLET PO SCH ×2 (08:04→16:21)
[2020-09-02] MEDS: SPIRONOLACTONE 25 MG TABLET PO SCH (08:04)
[2020-09-02] MEDS: FUROSEMIDE 40 MG TABLET PO SCH (08:04)
[2020-09-02] MEDS: lisinopriL 2.5 MG TABLET PO SCH (08:04)
[2020-09-02] MEDS: GABAPENTIN 100 MG CAPSULE PO SCH ×3 (08:04→20:26)
[2020-09-02] MEDS: PANTOPRAZOLE 40 MG TABLET PO SCH (08:04)
[2020-09-02] MEDS: LIDOCAINE 5% PATCH TRANSDERM SCH (10:01)
[2020-09-02] MEDS: INSULIN REGULAR 100 UNIT/ML SUBCUT SCH ×4 (10:22→20:26)
[2020-09-02] MEDS: CHLORHEXIDINE 0.12% ORAL RINSE 60 ML BOTTLE SWISH/SPIT SCH ×2 (10:24→20:26)
[2020-09-02] MEDS: FUROSEMIDE 80 MG TABLET PO SCH (16:20)
[2020-09-02] MEDS: ZALEPLON 5 MG CAPSULE PO PRN (20:26)
[2020-09-02] MEDS: ROSUVASTATIN 20 MG TABLET PO SCH (20:26)
[2020-09-03 05:58] LABS: Basophils % 0.4 % (0.0-0.8); Eosinophils # 0.7 10*3/uL (0.0-0.87); Eosinophils % 7.3 % (0.00-10.9); Hematocrit 31.9 VOL% (35.7-47.0); Hemoglobin 10.4 GM/DL (12.0-16.0); Immature Granulocytes % 0.4 %; Immature Granulocytes Absolute 0.04 #; Lymphocytes # 2.3 10*3/uL (1.4-4.0); Lymphocytes % 23.8 % (21.3-54.2); Mean Corpuscular HGB Conc 32.6 GM/DL (32-36); Mean Corpuscular Volume 86.2 FL (87-102); Mean Platelet Volume 9.3 FL (9.6-12.0); Monocytes % 7.7 % (1.7-12.7); Neutrophils % 60.4 % (38.7-73.9); Platelet Count 294 T/CUMM (130-400); Red Cell Distribution Width 13.7 % (9.3-17.3); White Blood Count 9.5 T/CUMM (4-12)
[2020-09-03 06:34] LABS: Calcium 9.1 MG/DL (8.5-10.1); Osmolality,Calculated 285.5 MOS/KG (273-304)
[2020-09-03] MEDS: oxyCODONE/ACETAMINOPHEN 5-325 MG TABLET PO PRN ×3 (08:31→18:14)
[2020-09-03] MEDS: METOPROLOL TARTRATE 25 MG TABLET PO SCH ×2 (08:33→21:21)
[2020-09-03] MEDS: ASCORBIC ACID 500 MG TABLET PO SCH ×2 (08:33→21:21)
[2020-09-03] MEDS: metFORMIN 500 MG TABLET PO SCH ×2 (08:33→16:05)
[2020-09-03] MEDS: ASPIRIN EC 81 MG TABLET PO SCH (08:33)
[2020-09-03] MEDS: DOCUSATE SODIUM 100 MG CAPSULE PO SCH (08:34)
[2020-09-03] MEDS: PANTOPRAZOLE 40 MG TABLET PO SCH (08:35)
[2020-09-03] MEDS: FUROSEMIDE 80 MG TABLET PO SCH ×2 (08:35→16:05)
[2020-09-03] MEDS: SPIRONOLACTONE 25 MG TABLET PO SCH (08:35)
[2020-09-03] MEDS: lisinopriL 2.5 MG TABLET PO SCH (08:35)
[2020-09-03] MEDS: GABAPENTIN 100 MG CAPSULE PO SCH ×3 (08:36→21:21)
[2020-09-03] MEDS: LIDOCAINE 5% PATCH TRANSDERM SCH (08:36)
[2020-09-03] MEDS: INSULIN GLARGINE 100 UNIT/ML SUBCUT SCH (08:36)
[2020-09-03] MEDS: POLYETHYLENE GLYCOL POWDER 17 GM PACK PO SCH (08:36)
[2020-09-03] MEDS: INSULIN REGULAR 100 UNIT/ML SUBCUT SCH ×4 (08:47→22:05)
[2020-09-03] MEDS: CHLORHEXIDINE 0.12% ORAL RINSE 60 ML BOTTLE SWISH/SPIT SCH ×2 (09:40→21:21)
[2020-09-03] MEDS: LEVOFLOXACIN 500 MG TABLET PO SCH (11:46)
[2020-09-03] MEDS: ROSUVASTATIN 20 MG TABLET PO SCH (21:21)
[2020-09-03] MEDS: ZALEPLON 5 MG CAPSULE PO PRN (21:21)
[2020-09-04] MEDS: oxyCODONE/ACETAMINOPHEN 5-325 MG TABLET PO PRN ×2 (04:31→10:26)
[2020-09-04 06:06] LABS: Osmolality,Calculated 280.8 MOS/KG (273-304)
[2020-09-04] MEDS: INSULIN REGULAR 100 UNIT/ML SUBCUT SCH ×2 (08:35→12:30)
[2020-09-04] MEDS: INSULIN GLARGINE 100 UNIT/ML SUBCUT SCH (08:36)
[2020-09-04] MEDS: metFORMIN 500 MG TABLET PO SCH (08:37)
[2020-09-04] MEDS: ASCORBIC ACID 500 MG TABLET PO SCH (08:37)
[2020-09-04] MEDS: METOPROLOL TARTRATE 25 MG TABLET PO SCH (08:38)
[2020-09-04] MEDS: ASPIRIN EC 81 MG TABLET PO SCH (08:38)
[2020-09-04] MEDS: FUROSEMIDE 80 MG TABLET PO SCH (08:38)
[2020-09-04] MEDS: SPIRONOLACTONE 25 MG TABLET PO SCH (08:39)
[2020-09-04] MEDS: LEVOFLOXACIN 500 MG TABLET PO SCH (08:39)
[2020-09-04] MEDS: PANTOPRAZOLE 40 MG TABLET PO SCH (08:39)
[2020-09-04] MEDS: lisinopriL 2.5 MG TABLET PO SCH (08:39)
[2020-09-04] MEDS: GABAPENTIN 100 MG CAPSULE PO SCH (08:39)
[2020-09-04] MEDS: POLYETHYLENE GLYCOL POWDER 17 GM PACK PO SCH (08:40)
[2020-09-04] MEDS: DOCUSATE SODIUM 100 MG CAPSULE PO SCH (08:40)
[2020-09-04] MEDS: LIDOCAINE 5% PATCH TRANSDERM SCH (08:40)
[2020-09-04] MEDS: CHLORHEXIDINE 0.12% ORAL RINSE 60 ML BOTTLE SWISH/SPIT SCH (09:45)
[2020-09-04 12:56] VITALS: BP 122/45
== END 2020-09-04 14:25 | disposition home health service (06) | DRG 234 ==
LOC: N.EDINP 17:27 → N.ED 17:27 → N.TELES 20:54 → N.CVR 08-24 15:44 → N.TELES 08-25 10:27
PROVIDERS: ADMIT Family Medicine
PROC: CLCCHCL (ICD-10-PCS; 2020-08-23 14:15)

== ENCOUNTER 2020-09-05 17:37 | Observation (INO) ==
[2020-09-05 19:28] LABS: Basophils # 0.1 10*3/uL (0.0-0.2); Basophils % 0.4 % (0.0-0.8); Eosinophils # 0.6 10*3/uL (0.0-0.87); Eosinophils % 3.9 % (0.00-10.9); Hematocrit 35.5 VOL% (35.7-47.0); Hemoglobin 11.6 GM/DL (12.0-16.0); Immature Granulocytes % 0.6 %; Immature Granulocytes Absolute 0.09 #; Lymphocytes # 3.3 10*3/uL (1.4-4.0); Lymphocytes % 20.4 % (21.3-54.2); Mean Corpuscular HGB Conc 32.7 GM/DL (32-36); Mean Corpuscular Volume 86.4 FL (87-102); Mean Platelet Volume 8.9 FL (9.6-12.0); Monocytes % 7.2 % (1.7-12.7); Neutrophils % 67.5 % (38.7-73.9); Platelet Count 360 T/CUMM (130-400); Red Blood Count 4.11 MC/CUMM (3.8-5.5); Red Cell Distribution Width 13.7 % (9.3-17.3); White Blood Count 16.1 T/CUMM (4-12)
[2020-09-05 19:54] LABS: INR 1.1; PT Patient Result 11.6 SECS (9.8-11.9)
[2020-09-05 20:01] LABS: Bilirubin,Total 0.9 MG/DL (0.2-1.0); Calcium 9.3 MG/DL (8.5-10.1); Osmolality,Calculated 284.7 MOS/KG (273-304); Total Protein 7.1 G/DL (6.4-8.3)
[2020-09-05 21:05] LABS: Bilirubin,Urine Negative (Negative); Blood, Urine Negative (Negative); Glucose,Urine (UA) Negative (Negative); Hyaline Casts,Urine 1 /LPF (0-3); Ketones,Urine Negative (Negative); Nitrite,Urine Negative (Negative); Protein,Urine Negative; RBC,Urine 3 /HPF (0-4); Squamous Epithelial Cell,Urine Occasional /HPF (0-10); Urine Appearance CLEAR (Clear); Urine Color Yellow (Yellow); Urine Specific Gravity 1.015 (1.001-1.035); WBC,Urine 3 /HPF (0-6)
[2020-09-05] MEDS ORDERED: ONDANSETRON 4 MG/2 ML VIAL IV STA (21:17)
[2020-09-05] MEDS ORDERED: MORPHINE 4 MG/1 ML VIAL IV STA (21:17)
[2020-09-06] MEDS ORDERED: ACETAMINOPHEN 325 MG TABLET PO PRN (00:51)
[2020-09-06] MEDS ORDERED: DEXTROSE 50% 25 GM/50 ML VIAL IV PRN (00:51)
[2020-09-06] MEDS ORDERED: MORPHINE 4 MG/1 ML VIAL IV PRN (00:51)
[2020-09-06] MEDS ORDERED: INSULIN REGULAR 100 UNIT/ML SUBCUT SCH (00:51)
[2020-09-06] MEDS ORDERED: GLUCAGON 1 MG VIAL IM PRN (00:51)
[2020-09-06] MEDS ORDERED: SODIUM CHLORIDE 0.9% 1,000 ML IV SCH ×2 (00:51→11:30)
[2020-09-06] MEDS ORDERED: ONDANSETRON 4 MG/2 ML VIAL IV PRN (00:51)
[2020-09-06] MEDS ORDERED: DEXTROSE 50% 25 GM/50 ML SYRINGE IV PRN (00:59)
[2020-09-06] MEDS: oxyCODONE/ACETAMINOPHEN 5-325 MG TABLET PO PRN ×3 (01:20→15:02)
[2020-09-06 02:40] LABS: Albumin 2.6 G/DL (3.4-5.0); Bilirubin,Total 0.6 MG/DL (0.2-1.0); Calcium 9.3 MG/DL (8.5-10.1); Total Protein 7.2 G/DL (6.4-8.3)
[2020-09-06 04:33] LABS: Basophils # 0.1 10*3/uL (0.0-0.2); Basophils % 0.4 % (0.0-0.8); Eosinophils # 0.6 10*3/uL (0.0-0.87); Eosinophils % 5.1 % (0.00-10.9); Hematocrit 34.4 VOL% (35.7-47.0); Hemoglobin 11.1 GM/DL (12.0-16.0); Immature Granulocytes % 0.4 %; Immature Granulocytes Absolute 0.05 #; Lymphocytes # 2.7 10*3/uL (1.4-4.0); Lymphocytes % 22.5 % (21.3-54.2); Mean Corpuscular HGB Conc 32.3 GM/DL (32-36); Mean Corpuscular Volume 87.1 FL (87-102); Mean Platelet Volume 8.6 FL (9.6-12.0); Monocytes % 9.5 % (1.7-12.7); Neutrophils % 62.1 % (38.7-73.9); Platelet Count 320 T/CUMM (130-400); Red Blood Count 3.95 MC/CUMM (3.8-5.5); Red Cell Distribution Width 13.7 % (9.3-17.3); White Blood Count 12.1 T/CUMM (4-12)
[2020-09-06 04:58] LABS: Troponin I < 0.015 NG/ML (0.00-0.045)
[2020-09-06] MEDS ORDERED: LEVOTHYROXINE 50 MCG TABLET PO SCH (07:00)
[2020-09-06] MEDS ORDERED: FUROSEMIDE 80 MG TABLET PO SCH (08:00)
[2020-09-06] MEDS ORDERED: KETOROLAC 30 MG/1 ML VIAL IV ONE (08:53)
[2020-09-06] MEDS ORDERED: PANTOPRAZOLE 40 MG VIAL IV SCH (09:00)
[2020-09-06] MEDS ORDERED: LEVOFLOXACIN 500 MG TABLET PO SCH (09:00)
[2020-09-06] MEDS ORDERED: INSULIN LISPRO 100 UNIT/ML SUBCUT SCH ×2 (09:00→21:00)
[2020-09-06] MEDS ORDERED: SPIRONOLACTONE 25 MG TABLET PO SCH (09:00)
[2020-09-06] MEDS ORDERED: DOCUSATE SODIUM 100 MG CAPSULE PO SCH (09:00)
[2020-09-06] MEDS ORDERED: INSULIN GLARGINE 100 UNIT/ML SUBCUT SCH (09:00)
[2020-09-06] MEDS ORDERED: METOPROLOL TARTRATE 25 MG TABLET PO SCH (09:00)
[2020-09-06] MEDS ORDERED: lisinopriL 2.5 MG TABLET PO SCH (09:00)
[2020-09-06] MEDS ORDERED: ROSUVASTATIN 20 MG TABLET PO SCH (09:00)
[2020-09-06 18:07] VITALS: BP 128/55
[2020-09-06] MEDS ORDERED: LANSOPRAZOLE 30 MG PO SCH (21:00)
[2020-09-06] MEDS ORDERED: ASPIRIN EC 81 MG TABLET PO SCH (21:00)
== END 2020-09-06 18:09 | disposition home or self-care (01) ==
LOC: EDBD → EDUNIT# → N.ED 17:37 → N.EDINP 17:37 → N.ED 09-06 18:08
PROVIDERS: ADMIT Emergency Medicine; ATTEND Emergency Medicine

== ENCOUNTER 2020-09-13 09:50 | Inpatient (IN) ==
[2020-09-13] MEDS ORDERED: FAMOTIDINE 20 MG/2 ML VIAL IV STA (10:59)
[2020-09-13] MEDS ORDERED: CETIRIZINE 10 MG TABLET PO STA (10:59)
[2020-09-13 12:02] LABS: Basophils # 0.1 10*3/uL (0.0-0.2); Basophils % 0.6 % (0.0-0.8); Eosinophils # 0.4 10*3/uL (0.0-0.87); Hematocrit 34.8 VOL% (35.7-47.0); Hemoglobin 11.4 GM/DL (12.0-16.0); Immature Granulocytes % 0.6 %; Immature Granulocytes Absolute 0.05 #; Lymphocytes # 2.1 10*3/uL (1.4-4.0); Lymphocytes % 24.9 % (21.3-54.2); Mean Corpuscular HGB Conc 32.8 GM/DL (32-36); Mean Corpuscular Volume 84.3 FL (87-102); Mean Platelet Volume 8.8 FL (9.6-12.0); Monocytes % 9.1 % (1.7-12.7); Neutrophils % 59.8 % (38.7-73.9); Platelet Count 234 T/CUMM (130-400); Red Blood Count 4.13 MC/CUMM (3.8-5.5); Red Cell Distribution Width 13.5 % (9.3-17.3); White Blood Count 8.6 T/CUMM (4-12)
[2020-09-13 12:25] LABS: PT Patient Result 10.7 SECS (9.8-11.9); Partial Thromboplastin Time 21.9 SECS (23.9-33.8)
[2020-09-13 12:30] LABS: Albumin 2.7 G/DL (3.4-5.0); Bilirubin,Total 0.5 MG/DL (0.2-1.0); Calcium 9.2 MG/DL (8.5-10.1); Osmolality,Calculated 278.2 MOS/KG (273-304); Total Protein 7.6 G/DL (6.4-8.3)
[2020-09-13] MEDS ORDERED: DEXAMETHASONE 4 MG/1 ML VIAL IV STA (13:23)
[2020-09-13] MEDS ORDERED: ONDANSETRON 4 MG/2 ML VIAL IV STA (13:48)
[2020-09-13] MEDS ORDERED: oxyCODONE/ACETAMINOPHEN 5-325 MG TABLET PO STA (13:49)
[2020-09-13] MEDS ORDERED: ONDANSETRON 4 MG/2 ML VIAL IV PRN (14:37)
[2020-09-13] MEDS ORDERED: DEXTROSE 50% 25 GM/50 ML VIAL IV PRN (14:37)
[2020-09-13] MEDS ORDERED: ACETAMINOPHEN 325 MG TABLET PO PRN (14:37)
[2020-09-13] MEDS ORDERED: GLUCAGON 1 MG VIAL IM PRN (14:37)
[2020-09-13] MEDS: ENOXAPARIN 40 MG/0.4 ML SYRINGE SUBCUT SCH (15:50)
[2020-09-13] MEDS: SODIUM CHLORIDE 0.9% 1,000 ML IV SCH (15:50)
[2020-09-13] MEDS: SPIRONOLACTONE 25 MG TABLET PO SCH (17:06)
[2020-09-13] MEDS: lisinopriL 2.5 MG TABLET PO SCH (17:06)
[2020-09-13] MEDS: INSULIN LISPRO 100 UNIT/ML SUBCUT SCH ×2 (17:06→21:42)
[2020-09-13] MEDS: FUROSEMIDE 40 MG TABLET PO SCH ×2 (17:07→17:12)
[2020-09-13] MEDS ORDERED: ZALEPLON 5 MG CAPSULE PO PRN (19:15)
[2020-09-13] MEDS ORDERED: KETOROLAC 30 MG/1 ML VIAL IV ONE (20:00)
[2020-09-13] MEDS: DOCUSATE SODIUM 100 MG CAPSULE PO SCH (20:31)
[2020-09-13] MEDS ORDERED: INSULIN GLARGINE 100 UNIT/ML SUBCUT SCH (21:00)
[2020-09-13] MEDS: metFORMIN 500 MG TABLET PO SCH (21:41)
[2020-09-13] MEDS: oxyCODONE/ACETAMINOPHEN 5-325 MG TABLET PO PRN (21:41)
[2020-09-13] MEDS: ASCORBIC ACID 500 MG TABLET PO SCH (21:41)
[2020-09-13] MEDS: FAMOTIDINE 20 MG TABLET PO SCH (21:41)
[2020-09-13] MEDS: ASPIRIN EC 81 MG TABLET PO SCH (21:41)
[2020-09-13] MEDS: METOPROLOL TARTRATE 25 MG TABLET PO SCH (21:41)
[2020-09-13] MEDS: INSULIN GLARGINE 100 UNIT/ML SUBCUT SCH (21:42)
[2020-09-14] MEDS: INSULIN LISPRO 100 UNIT/ML SUBCUT SCH ×5 (00:10→21:00)
[2020-09-14] MEDS: SODIUM CHLORIDE 0.9% 1,000 ML IV SCH (05:30)
[2020-09-14 08:11] LABS: Basophils % 0.2 % (0.0-0.8); Eosinophils % 0.3 % (0.00-10.9); Hematocrit 36.7 VOL% (35.7-47.0); Hemoglobin 12.1 GM/DL (12.0-16.0); Immature Granulocytes % 0.5 %; Immature Granulocytes Absolute 0.03 #; Lymphocytes # 1.9 10*3/uL (1.4-4.0); Lymphocytes % 29.3 % (21.3-54.2); Mean Corpuscular Volume 84.6 FL (87-102); Mean Platelet Volume 8.5 FL (9.6-12.0); Neutrophils % 60.7 % (38.7-73.9); Platelet Count 262 T/CUMM (130-400); Red Blood Count 4.34 MC/CUMM (3.8-5.5); Red Cell Distribution Width 13.2 % (9.3-17.3); White Blood Count 6.4 T/CUMM (4-12)
[2020-09-14 08:31] LABS: Albumin 2.9 G/DL (3.4-5.0); Bilirubin,Total 0.4 MG/DL (0.2-1.0); Calcium 9.4 MG/DL (8.5-10.1); Osmolality,Calculated 276.1 MOS/KG (273-304); Total Protein 8.1 G/DL (6.4-8.3)
[2020-09-14] MEDS ORDERED: DEXAMETHASONE 4 MG/1 ML VIAL IV SCH (09:00)
[2020-09-14] MEDS ORDERED: PANTOPRAZOLE 40 MG TABLET PO SCH (09:00)
[2020-09-14] MEDS: LEVOFLOXACIN INJ 750 MG in PREMIX 1 EACH IV SCH ×2 (09:57→12:11)
[2020-09-14] MEDS: INSULIN GLARGINE 100 UNIT/ML SUBCUT SCH ×2 (09:57→21:50)
[2020-09-14] MEDS: ZINC GLUCONATE 50 MG TABLET PO SCH (09:58)
[2020-09-14] MEDS: DOCUSATE SODIUM 100 MG CAPSULE PO SCH ×2 (09:58→21:49)
[2020-09-14] MEDS: SPIRONOLACTONE 25 MG TABLET PO SCH (09:58)
[2020-09-14] MEDS: ROSUVASTATIN 20 MG TABLET PO SCH (09:58)
[2020-09-14] MEDS: FAMOTIDINE 20 MG TABLET PO SCH ×2 (09:58→21:00)
[2020-09-14] MEDS: ASCORBIC ACID 500 MG TABLET PO SCH ×2 (09:58→21:00)
[2020-09-14] MEDS: METOPROLOL TARTRATE 25 MG TABLET PO SCH ×2 (09:59→21:00)
[2020-09-14] MEDS: lisinopriL 2.5 MG TABLET PO SCH (09:59)
[2020-09-14] MEDS: metFORMIN 500 MG TABLET PO SCH ×2 (09:59→21:00)
[2020-09-14] MEDS: LEVOTHYROXINE 50 MCG TABLET PO SCH (09:59)
[2020-09-14] MEDS: FUROSEMIDE 40 MG TABLET PO SCH (09:59)
[2020-09-14] MEDS: oxyCODONE/ACETAMINOPHEN 5-325 MG TABLET PO PRN ×2 (13:19→22:57)
[2020-09-14] MEDS: ENOXAPARIN 40 MG/0.4 ML SYRINGE SUBCUT SCH (14:42)
[2020-09-14] MEDS: LEVOFLOXACIN 500 MG TABLET PO SCH (14:42)
[2020-09-14] MEDS: ASPIRIN EC 81 MG TABLET PO SCH (21:00)
[2020-09-15 07:59] VITALS: BP 118/52
[2020-09-15] MEDS: INSULIN LISPRO 100 UNIT/ML SUBCUT SCH (08:36)
[2020-09-15] MEDS: SPIRONOLACTONE 25 MG TABLET PO SCH (08:38)
[2020-09-15] MEDS: ASCORBIC ACID 500 MG TABLET PO SCH (08:38)
[2020-09-15] MEDS: FUROSEMIDE 40 MG TABLET PO SCH (08:38)
[2020-09-15] MEDS: metFORMIN 500 MG TABLET PO SCH (08:38)
[2020-09-15] MEDS: DOCUSATE SODIUM 100 MG CAPSULE PO SCH (08:38)
[2020-09-15] MEDS: METOPROLOL TARTRATE 25 MG TABLET PO SCH (08:39)
[2020-09-15] MEDS: LEVOTHYROXINE 50 MCG TABLET PO SCH (08:39)
[2020-09-15] MEDS: lisinopriL 2.5 MG TABLET PO SCH (08:39)
[2020-09-15] MEDS: ROSUVASTATIN 20 MG TABLET PO SCH (08:39)
[2020-09-15] MEDS: ZINC GLUCONATE 50 MG TABLET PO SCH (08:39)
[2020-09-15] MEDS: LEVOFLOXACIN 500 MG TABLET PO SCH (08:39)
[2020-09-15] MEDS: FAMOTIDINE 20 MG TABLET PO SCH (08:40)
[2020-09-15] MEDS: INSULIN GLARGINE 100 UNIT/ML SUBCUT SCH (08:41)
[2020-09-15] MEDS ORDERED: DEXAMETHASONE 4 MG TABLET PO SCH (09:00)
[2020-09-15] MEDS: oxyCODONE/ACETAMINOPHEN 5-325 MG TABLET PO PRN (10:26)
== END 2020-09-15 11:40 | disposition home health service (06) | DRG 178 ==
LOC: EDUNIT# → EDBD → N.ED 09:50 → N.EDINP 13:38 → N.2E 14:35
PROVIDERS: ADMIT Family Medicine; ATTEND Family Medicine